=== PATIENT | female | born 1990 | race African-American/Black ===

== ENCOUNTER 2019-11-12 07:01 | Emergency (ER) | payer MEDICAID ==
[~2019-11-12] VITALS: Ht 157.5 cm; Wt 70.5 kg
[~2019-11-12 07:01] MED LIST: NO HOME MEDICATIONS; TESSALON PERLE200 MG PO
[2019-11-12 07:05] VITALS: BP 053/101; TEMP 98.3
[2019-11-12 09:35] VITALS: PULSE 108
== END 2019-11-12 11:00 | disposition home or self-care (01) ==
LOC: COL.ER 07:01
DX: S01.112A Laceration without foreign body of left eyelid and periocular area, initial encounter (principal); S09.93XA Unspecified injury of face, initial encounter; Y04.8XXA Assault by other bodily force, initial encounter